=== PATIENT | female | born 1975 | race Asian ===

== ENCOUNTER 2022-12-18 20:20 | Emergency (ER) | payer OTHER, SELFPAY ==
[2022-12-18 20:29] VITALS: BP 163/93; PULSE 105; RESP 18; TEMP 36.6; O2SAT 100; BMI 37.5
--- NOTE | 2022-12-18 20:34 | ED_ITS ---
HPI - General Adult General Chief complaint: Lower Extremity Swelling Stated complaint: possible dvt Time Seen by Provider: 12/18/22 20:25 History of Present Illness HPI narrative: CC: Right Leg Swelling/Pain pt. with symptoms since Wednesday. able to beare weight. denies fevers, shortness of breath, diarrhea, n/v. 47-year-old woman presenting to the emergency department concern of leg swelling. Specifically her right leg. Has had pain as well. Symptoms seem to have started more intensely 2 or 3 days ago. No chest pain or shortness of breath. Actually about a week ago was having some soreness and little swelling in her right knee. She massaged it and it seemed to get better. She has not noted any redness. No trauma. Hurts in particular flex the knee as if something is just stuck in there she says. Has been treating with prescription ibuprofen? Review of records the D-dimer was 18.3 collected in clinic earlier today. Does not look as though other labs are available. Related Data Home Medications Medication Instructions Recorded Confirmed losartan 25 mg tablet 25 mg PO DAILY 12/18/22 12/18/22 metformin 1,000 mg tablet 1,000 mg PO BID 12/18/22 12/18/22 Previous Rx's Medication Instructions Recorded amoxicillin 875 mg tablet 875 mg PO BID 14 days #28 tabs 12/18/22 Allergies Allergy/AdvReac Type Severity Reaction Status Date / Time shellfish AdvReac Unknown Hives Uncoded 12/18/22 18:48 Review of Systems Status of ROS: Reports: 6 or more systems reviewed and unremarkable except as noted in History and below [facility] Medical History Right leg swelling ?M79.89 - Other specified soft tissue disorders (ICD-10) Surgical History No significant past surgical history Social History Smoking Status: Never smoker Second hand tobacco smoke exposure: No How often do you have a drink containing alcohol: never How often do you have six or more drinks on one occasion: Never AUDIT-C Alcohol total score: 0 Non-prescribed substance use: denies use Exam Narrative: Exam Narrative: Pleasant. NAD. Breathing easily. Skin is warm and dry without induration or calor or erythema. Lungs are clear with breath sounds throughout. Heart in elevated rate in a regular rhythm. Right leg in question is quite swollen relative to the left again without inflammatory changes. This is over the thigh and knee. There is some swelling into the lower leg as well on the right side more than the left but less noticeable. A little tense in the calf. Const: Vital Signs, click to edit/add: Vital Signs - 24 hr 12/18/22 20:29 12/18/22 21:11 Temperature 97.9 F 97.9 F Pulse Rate [Right Pulse Oximeter] 105 H Respiratory Rate 18 Blood Pressure [Ri ght Upper Arm] 163/93 H Pulse Oximetry 100 Oxygen Delivery Me thod Room Air Documenting provider has reviewed patient's vital signs: yes Course Vital Signs Vital signs: Initial Vital Signs Temperature 97.9 F 12/18/22 20:29 Temperature Source Temporal Artery Scan 12/18/22 20:29 Pulse Rate 105 H 12/18/22 20:29 Respiratory Rate 18 12/18/22 20:29 Blood Pressure 163/93 H 12/18/22 20:29 Blood Pressure Mean 116 H 12/18/22 20:29 Blood Pressure Position Sitting 12/18/22 20:29 Pulse Oximetry 100 12/18/22 20:29 Oxygen Delivery Method Room Air 12/18/22 20:29 Vital Signs Temperature 97.9 F 12/18/22 20:29 Pulse Rate 105 H 12/18/22 20:29 Respiratory Rate 18 12/18/22 20:29 Blood Pressure 163/93 H 12/18/22 20:29 Pulse Oximetry 100 12/18/22 20:29 Oxygen Delivery Method Room Air 12/18/22 20:29 Temperature 98.2 F 12/18/22 23:54 Pulse Rate 91 12/18/22 23:54 Respiratory Rate 18 12/18/22 23:54 Blood Pressure 145/74 H 12/18/22 23:54 Pulse Oximetry 100 12/18/22 23:42 Oxygen Delivery Method Room Air 12/18/22 23:42 Medications Administered Medications: Discontinued Medications Generic Name Dose Route Start Last Admin Trade Name Freq PRN Reason Stop Dose Admin Amoxicillin 1,000 mg 12/18/22 23:32 12/18/22 23:42 Amoxicillin 250 Mg Capsule PO 12/18/22 23:33 1,000 mg ONCE ONE Administration Ibuprofen 800 mg 12/18/22 21:06 12/18/22 21:11 Ibuprofen 400 Mg Tablet PO 12/18/22 21:07 800 mg ONCE ONE Administration Medical Decision Making MDM Narrative Medical decision making narrative: Differential includes occult process, bleeding/hematoma, deep venous thrombus, Nuno cyst rupture less likely as more significant findings seem to be proximal than distal. Arthritis flare of some sort though without the redness 1 might expect. Does not appear to be an infectious process. Requested president practicing urologist at present. Drawing labs again looking for other inflammatory changes though does not appear to be present currently. What was not initially revealed is that struggles with persistent hidradenitis suppurativa and has been having some flare of this in the right buttock/hip area. Ultrasound ultimately noted to be negative. Discussed with president practicing urologist. Re-examination that Ms. Wright seems a little reluctant to allow initially, shows bandages over scarred in cystic tissue that is draining some. I do not see marked inflammatory changes or cellulitis but would have to presume that this is the reason that there is more swelling in the right thigh. Also draining in the right axilla skin. Redundant tissue in this area in particular. Says that amoxicillin has typically been helpful. She is wondering if maybe she needs to get on another course of this. This has been quite painful. White count is normal though CRP elevated at 6.3. I think will need some surgical intervention at this point to deal with the chronicity of this. Might need plastics involvement. See patient discharge plan Lab Data Lab results reviewed: Yes I reviewed the patient's lab results Labs: Lab Results 12/18/22 Range/Units 20:50 WBC 8.04 (4.50-11.00) K/uL RBC 4.37 (4.00-5.20) m/uL Hgb 12.8 (12.0-16.0) gm/dL Hct 39.5 (33.0-51.0) % MCV 90 (80-100) fL MCH 29 (26-34) pg MCHC 32 (32-36) gm/dL RDW Coeff of Gypsy 13.0 (11.5-15.5) % Plt Count 288 (140-440) K/uL Neut % (Auto) 64.3 (42.0-72.0) % Lymph % (Auto) 25.7 (20-44) % Howell % (Auto) 8.6 (0.0-11.0) % Eos % (Auto) 1.2 (0.0-7.0) % Baso % (Auto) 0.1 (0.0-3.0) % Neut # (Auto) 5.16 (1.7-7.0) K/uL Lymph # (Auto) 2.07 (0.90-2.90) K/uL Howell # (Auto) 0.70 (0.00-0.90) K/UL Eos # (Auto) 0.10 (0.00-0.50) K/uL Baso # (Auto) 0.01 (0.00-0.30) K/uL Abs Immat Gran (auto) 0.01 (0.00-0.30) K/uL Imm/Tot Granulo (auto) 0.1 % Sodium 137 (135-149) mmol/L Potassium 3.9 (3.6-5.1) mmol/L Chloride 104 (96-114) mmol/L Carbon Dioxide 25 (20-32) mmol/L Anion Gap 8 (7-15) mEq/L BUN 13 (5-24) mg/dL Creatinine 0.5 (0.5-1.5) mg/dL Estimated Creat Clear 110.01 Estimated GFR 116 ml/min Glucose 217 H (60-115) mg/dL Calcium 9.6 (8.4-10.6) mg/dL C-Reactive Protein 6.3 H (0.5-1.0) mg/dL Discharge Plan Discharge Clinical Impression: Dependent edema, Hidradenitis suppurativa Patient Disposition: Home w/ Parent or Adult Condition: Stable Additional Instructions: Unfortunately we do not have amoxicillin in the discussed dosing in the [facility]. Receiving 1 dose here and I will send the rest of your prescription to your pharmacy. Yes. I do think it might be time for you to see General surgery again or maybe plastic surgery for an opinion. You can check making that appointment independently but the referral may need to come from your primary care provider. Be seen sooner for fever, marked increase in pain/redness/swelling. Prescriptions: New amoxicillin 875 mg tablet 875 mg PO BID 14 Days Qty: 28 1RF No Action losartan 25 mg tablet 25 mg PO DAILY metformin 1,000 mg tablet 1,000 mg PO BID Follow Up/Referrals: Provider,Not a Local [Primary Care Provider] - Stand Alone Forms: [employer] Info Instructions
--- NOTE | 2022-12-18 20:48 | CRLHL7_ITS ---
For Patients: As a result of the Century Cures Act, medical imaging exams and procedure reports are released immediately into your electronic medical record. You may view this report before your referring provider. If you have questions, please contact your health care provider. INDICATION: Leg pain and swelling. TECHNIQUE: Ultrasound venous duplex lower right extremity. Compression venous exam was performed using dobbins-scale, color Doppler, and spectral Doppler analysis. COMPARISON: None. FINDINGS: Deep veins: Sonographic imaging demonstrates the right common femoral, deep femoral, superficial femoral, popliteal, posterior tibial and the contralateral right common femoral veins to be fully compressible with normal color Doppler blood flow. Superficial veins: Greater saphenous vein is fully compressible. No popliteal cyst. IMPRESSION: Normal right lower extremity venous ultrasound, no sign of deep venous thrombosis. Dictated by Sixto Nash MD @ 12/18/2022 10:01:37 PM (Electronically Signed)
[2022-12-18 21:08] LABS: Basophils Absolute Auto 0.01 K/uL (0.00-0.30); Basophils Percent Auto 0.1 % (0.0-3.0); Eosinophils Percent Auto 1.2 % (0.0-7.0); Hematocrit 39.5 % (33.0-51.0); Hemoglobin* 12.8 gm/dL (12.0-16.0); Immature Granulocytes Abs Auto 0.01 K/uL (0.00-0.30); Immature Granulocytes Pct Auto 0.1 %; Lymphocytes Absolute Auto 2.07 K/uL (0.90-2.90); Lymphocytes Percent Auto 25.7 % (20-44); Mean Corpuscular HGB Conc 32 gm/dL (32-36); Mean Corpuscular Hemoglobin 29 pg (26-34); Mean Corpuscular Volume 90 fL (80-100); Monocytes Percent Auto 8.6 % (0.0-11.0); Neutrophils Absolute Auto 5.16 K/uL (1.7-7.0); Neutrophils Percent Auto 64.3 % (42.0-72.0); Platelet Count* 288 K/uL (140-440); Red Blood Count 4.37 m/uL (4.00-5.20); White Blood Count* 8.04 K/uL (4.50-11.00)
[2022-12-18 21:11] VITALS: TEMP 36.6
[2022-12-18 21:11] LABS: Slide Review Reflex No
[2022-12-18] MEDS: IBUPROFEN 400 MG TABLET 800 MG PO (21:11)
[2022-12-18 21:27] LABS: Chloride* 104 mmol/L (96-114); Sodium* 137 mmol/L (135-149)
[2022-12-18 21:28] LABS: Potassium* 3.9 mmol/L (3.6-5.1)
[2022-12-18 21:30] LABS: Creatinine* 0.5 mg/dL (0.5-1.5); Est. Creatinine Clearance* 110.01; Estimated Glomerular Filt Rate 116 ml/min
[2022-12-18 21:31] LABS: Anion Gap 8 mEq/L (7-15); Blood Urea Nitrogen* 13 mg/dL (5-24); Calcium* 9.6 mg/dL (8.4-10.6); Carbon Dioxide* 25 mmol/L (20-32); Glucose* 217 mg/dL (60-115)
[2022-12-18 21:34] LABS: C Reactive Protein* 6.3 mg/dL (0.5-1.0)
[2022-12-18 23:24] VITALS: TEMP 36.6
[2022-12-18 23:42] VITALS: BP 145/74; PULSE 91; RESP 18; TEMP 36.8; O2SAT 100
[2022-12-18] MEDS: AMOXICILLIN 250 MG CAPSULE 1000 MG PO (23:42)
[2022-12-18 23:54] VITALS: BP 145/74; PULSE 91; RESP 18; TEMP 36.8
== END 2022-12-18 23:54 | disposition home or self-care (01) ==
PROVIDERS: Emergency Provider Family Medicine
DX: R60.9 Edema, unspecified (principal); L73.2 Hidradenitis suppurativa
CPT/HCPCS: 36415; 80048; 84550; 85025; 86140; 93971; 99284; A9270